=== PATIENT | male | born 1985 | race Caucasian/White ===

== ENCOUNTER 2018-09-24 03:28 | Inpatient (IN) ==
[2018-09-24] MEDS ORDERED: Haloperidol Inj 5 MG/ML Ampul IM ONE (03:47)
[2018-09-24 04:38] LABS: Baso # (Auto) 0.1 th/mm3 (0.0-0.2); Baso % (Auto) 0.5 % (0.0-2.0); Eos # (Auto) 0.1 th/mm3 (0.0-0.4); Eos % (Auto) 1.1 % (0.0-4.0); Hematocrit 50.3 % (39.0-51.0); Hemoglobin 17.1 gm/dL (13.0-17.0); Lymph # (Auto) 3.1 th/mm3 (1.0-4.8); Lymph % (Auto) 25.1 % (9.0-44.0); Mean Corpuscular HGB Conc 33.9 % (32.0-36.0); Mean Corpuscular Volume 94.5 fL (80.0-100.0); Mean Platelet Volume 8.8 fL (7.0-11.0); Mono # (Auto) 0.9 th/mm3 (0.0-0.9); Mono % (Auto) 7.6 % (0.0-8.0); Neut # (Auto) 8.2 th/mm3 (1.8-7.7); Neut % (Auto) 65.7 % (16.0-70.0); Platelet Count 266 th/mm3 (150-450); Red Blood Count 5.33 mil/mm3 (4.50-5.90); White Blood Count 12.5 th/mm3 (4.0-11.0)
[2018-09-24 04:49] LABS: Alanine Aminotransferase 61 U/L (12-78); Albumin 4.9 g/dL (3.4-5.0); Anion Gap 8 meq/L (5-15); Aspartate Aminotransferase 94 U/L (15-37); Blood Urea Nitrogen 8 mg/dL (7-18); Carbon Dioxide 28.6 meq/L (21.0-32.0); Chloride 101 meq/L (98-107); Glomerular Filtration Rate 64 mL/min (>89); Glucose,Random 119 mg/dL (74-106); Magnesium 2.3 mg/dL (1.5-2.5); Sodium 138 meq/L (136-145)
[2018-09-24 04:51] LABS: Alcohol 4 mg/dL (0-5)
[2018-09-24 05:00] LABS: Alkaline Phosphatase 62 U/L (45-117); Total Protein 8.5 g/dL (6.4-8.2)
--- NOTE | 2018-09-24 06:41 | ED ---
HPI General Chief Complaint: Psychiatric Symptoms Stated Complaint: Psych [place] [employer] Time Seen by Provider: 09/24/18 05:28 Source: patient and police Mode of arrival: other (police) Limitations: no limitations History of Present Illness HPI Narrative: Patient presents to our ED under a lundberg act by law enforcement due to acting psychotic. Patient has bipolar and has not been taking medications . Patient is difficult to obtain an HPI from due to being belligerent complaint: Reports altered mental status Duration: constant History of same: Yes Relieving factors: none Context: Reports recent drug abuse Associated psychiatric symptoms: Reports none Treatments prior to arrival: Reports placed on mental health hold Related Data Home Medications Medication Instructions Recorded Confirmed No Known Home Medications 09/24/18 09/24/18 Allergies Allergy/AdvReac Type Severity Reaction Status Date / Time No Known Allergies Allergy Verified 09/24/18 03:45 Review of Systems ROS: all other systems reviewed are negative [facility] Medical History Medical History Bipolar disorder (Acute) Surgical History Surgical History History of hip surgery (Acute) Social History Social History Substance History: No History of Abuse Second Hand Smoke Exposure: Yes Smoking Status: Current every day smoker Tobacco Type: Cigarettes How Often Do You Have a Drink Containing Alcohol: 2 to 4 times a month Recent Travel in [facility] within the Last 8 Weeks: No Recent Out of Country Travel within the Last 8 Weeks: No Immunization History Tetanus Immunization: >5 Years Exam Const General: cooperative Orientation: alert, awake and oriented x3 HENMT Head: normocephalic and atraumatic Nose: no nasal discharge and no epistaxis Mouth: moist mucous membranes Eyes Sclera: normal sclerae Pupils: PERRL Neck Neck: trachea midline and no JVD Resp Effort & Inspection: no use of accessory muscles Auscultation: clear to auscultation bilaterally Cardio Rate: regular rate Rhythm: regular rhythm Heart Sounds: no murmurs GI Inspection: non-distended Palpation: soft, no hepatosplenomegaly and nontender Skin General: dry skin (warm) Neuro General: alert and awake Cranial Nerves: other Speech: speech normal Motor: no movement abnormalities noted Extrem General: normal to inspection, no clubbing, no cyanosis and no edema Psych Mood: congruent mood Affect: normal affect Judgment: judgment good Course Initial Documented Vital Signs Temperature 97.7 F 09/24/18 03:46 Pulse Rate 118 H 09/24/18 03:46 Respiratory Rate 18 09/24/18 03:46 Blood Pressure 177/104 H 09/24/18 03:46 Pulse Oximetry 97 09/24/18 03:46 Last Documented Vital Signs Temperature 97.7 F 09/24/18 03:46 Pulse Rate 98 H 09/24/18 18:08 Respiratory Rate 18 09/24/18 18:08 Blood Pressure 136/74 09/24/18 18:08 Pulse Oximetry 98 09/24/18 18:08 Medical Decision Making MDM Narrative Medical decision making narrative: Patient presents to our ED under a lundberg act by law enforcement due to acting psychotic. Patient has bipolar and has not been taking medications . Patient is difficult to obtain an HPI from due to being belligerent Patient is given IM Haldol Benadryl and Ativan Lab work is ordered including a drug screen and alcohol level Lab work is unremarkable Patient is medically cleared and await psychiatric evaluation in the more Medical Screen Exam Complete: Yes Emergency Medical Condition: Yes Differential Diagnosis Differential Diagnosis: Anxiety, depression, suicidal ideation, niall, bipolar depression, drug-induced psychosis Lab Data Lab results reviewed: Yes I reviewed the patient's lab results. Result diagrams: 09/24/18 04:04 09/24/18 04:04 Lab Results 09/24/18 09/24/18 09/24/18 Range/Units 04:04 04:04 12:15 WBC 12.5 H (4.0-11.0) th/mm3 RBC 5.33 (4.50-5.90) mil/mm3 Hgb 17.1 H (13.0-17.0) gm/dL Hct 50.3 (39.0-51.0) % MCV 94.5 (80.0-100.0) fL MCH 32.0 (27.0-34.0) pg MCHC 33.9 (32.0-36.0) % RDW 13.0 (11.6-17.2) % Plt Count 266 (150-450) th/mm3 MPV 8.8 (7.0-11.0) fL Neut % (Auto) 65.7 (16.0-70.0) % Lymph % (Auto) 25.1 (9.0-44.0) % [place] % (Auto) 7.6 (0.0-8.0) % Eos % (Auto) 1.1 (0.0-4.0) % Baso % (Auto) 0.5 (0.0-2.0) % Neut # (Auto) 8.2 H (1.8-7.7) th/mm3 Lymph # (Auto) 3.1 (1.0-4.8) th/mm3 [place] # (Auto) 0.9 (0.0-0.9) th/mm3 Eos # (Auto) 0.1 (0.0-0.4) th/mm3 Baso # (Auto) 0.1 (0.0-0.2) th/mm3 WBC Differential . Differential Comment Auto diff final Sodium 138 (136-145) meq/L Potassium 4.0 (3.5-5.1) meq/L Chloride 101 (98-107) meq/L Carbon Dioxide 28.6 (21.0-32.0) meq/L Anion Gap 8 (5-15) meq/L BUN 8 (7-18) mg/dL Creatinine 1.29 (0.60-1.30) mg/dL Estimated GFR 64 L (>89) mL/min Random Glucose 119 H (74-106) mg/dL Calcium 9.0 (8.5-10.1) mg/dL Magnesium 2.3 (1.5-2.5) mg/dL Total Bilirubin 0.8 (0.2-1.0) mg/dL AST 94 H (15-37) U/L ALT 61 (12-78) U/L Alkaline Phosphatase 62 (45-117) U/L Total Protein 8.5 H (6.4-8.2) g/dL Albumin 4.9 (3.4-5.0) g/dL TSH 1.460 (0.358-3.740) uIU/mL Urine Opiates Screen Neg (Neg) Ur Barbiturates Screen Neg (Neg) Ur Amphetamines Screen Neg (Neg) U Benzodiazepines Scrn Neg (Neg) Urine Cocaine Screen Neg (Neg) U Cannabinoids Screen Neg (Neg) Serum Alcohol 4 (0-5) mg/dL Discharge Plan Discharge Disposition Patient Disposition: Sign Out(ED Internal Use Only) Discharge Condition Condition: Stable Discharge Order Discharge Orders: ED Use Only Admit Order (Routine); Ordered 09/24/18 Ordered By: Cathy Mckeon Discharge Details Diagnosis: Acute psychosis Physicians Team ED Provider: Carlos Mitchell ED Midlevel Provider: Jeanette Crespo Primary Care Provider: UNKNOWN, Attending Provider: Johnnie Villarreal Status ED Status: Left Department Discharge Information Discharge Date/Time: 09/24/18 17:14
[2018-09-24 12:46] LABS: Amphetamine Screen,Urine Neg (Neg); Barbiturate Screen,Urine Neg (Neg); Cannabinoid Screen,Urine Neg (Neg); Cocaine Screen,Urine Neg (Neg)
[2018-09-24 12:48] LABS: Opiate Screen,Urine Neg (Neg)
[2018-09-24] MEDS ORDERED: Aluminum/Magnesium/Simethacone Susp 30 ML UDC PO PRN (16:17)
--- NOTE | 2018-09-24 16:17 | ED ---
HPI - Psych - General Time Seen by Psych Provider: 16:00 Source: patient, old records reviewed, police Mode of arrival: other (police) Limitations: no limitations - History of Present Illness MD complaint: other Onset (ago): day(s) Duration: constant History of same: Yes Relieving factors: none Exacerbating factors: other Context: not taking psychiatric medications Associated symptoms: denies other symptoms, other Treatments prior to arrival: placed on mental health hold If self harm: other (Denies) - General Chief Complaint: Psychiatric Symptoms Stated Complaint: Psych [place] [employer] Time Seen by Provider: 09/24/18 05:28 - History of Present Illness HPI Narrative: History of Present Illness HPI Narrative: 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 Alleging that he made statements that there is going to be a terrorist attack. He also mentioned later that he will be carrying out God's plan with the terrorist attack. He also threatened to kill himself. Upon arrival here to the ED the patient was somewhat agitated and belligerent and hard ETO's. Once patient was moved to [facility] he continued to pace around the unit requiring frequent verbal redirection due to his intrusive behaviors but the other patients. EMR reviewed. Patient was admitted to our inpatient psychiatric unit in 2009 and treated for a manic episode. Current toxicology is negative for any substances of abuse. Patient is seen with jada Lerma present. The patient is difficult to maintain on topic. He states" I chose to come here to alleviate their distress. I have been told I have bipolar disorder and have had 3 manic episodes in a short amount of time. I have an undiscovered bipolar type disorder. May be is a type III or type 0." He has disorganized thoughts, he is tangential. Does not appear to be responding to internal stimuli. He does not answer questions when they are posed to him but rather goes on a tangent. I have contacted his mother, Lalito at telephone listed on the Bolden act. The mother reports that the patient has had 3 manic episodes. The first 1 in 2009, the second 1 in 2016 while he was in [place] and was hospitalized for over 2 weeks. After that hospitalization he has not taking any medication because he states that he does not like how the medication makes him feel. Beginning on Wednesday the patient has begun to demonstrate signs such as religiously preoccupied, becoming demanding and belligerent, verbalizing grandiose statements such as that the president of his college she is going to make him be in charge because she is retiring. He also has been calling different talk radio shows, has not been sleeping since last Wednesday. (Cathy Mckeon) - Related Data Home Medications Medication Instructions Recorded Confirmed No Known Home Medications 09/24/18 09/24/18 Allergies Allergy/AdvReac Type Severity Reaction Status Date / Time No Known Allergies Allergy Verified 09/24/18 03:45 [facility] - History History Provided By: Patient, Family Member (His mother) - Medical History Medical History: Medical History (Last Reviewed 09/24/18 @ 06:38 by Jeanette Crespo) Bipolar disorder - Surgical History Surgical History: Surgical History (Last Reviewed 09/24/18 @ 06:38 by Jeanette Crespo) History of hip surgery - Social History I have reviewed the patient's Social History: Yes - Tobacco History Second Hand Smoke Exposure: Yes Tobacco Use In Past 30 Days: Yes Smoking Status: Current every day smoker Tobacco Type: Cigarettes - Alcohol History How Often Do You Have a Drink Containing Alcohol: 4 or more times a week - Substance Use History Substance History: No History of Abuse - Travel History Recent Travel in the [facility] Within the Last 8 Weeks: No Recent Travel Out of the Country Within the Last 8 Weeks: No - Immunization History Tetanus Immunization: >5 Years Psychiatric History - Psychiatric History Psychiatric Treatment History: History of Psychiatric Treatment, History of Hospitalization in a Psychiatric Facility History of Inpatient Treatment: Yes - Psychiatric History 2 previous psychiatric hospitalizations in 2009 and in 2017. In 2009 he was treated here at [facility]. He does not take psychiatric medications. No previous suicide attempt. (Cathy Mckeon) Physical Exam - General Limitations: no limitations Mental Status Examination Consciousness: Alert Orientation: x4 Motor Activity: Normal gait Speech: Rapid Language: Adequate Fund of Knowledge: Adequate Attention and Concentration: Easily distracted Memory: Unremarkable Mood: Other (Labile) Affect: Appropriate Thought Process & Associations: Disorganized, Tangential Thought Content: Racing thoughts Hallucination Type: None Delusion Type: None Suicidal Ideation: No Suicidal Plan: No Suicidal Intention: No Homicidal Ideation: No Homicidal Plan: No Homicidal Intention: No Insight: Poor Judgment: Poor Initial Documented Vital Signs Temperature 97.7 F 09/24/18 03:46 Pulse Rate 118 H 09/24/18 03:46 Respiratory Rate 18 09/24/18 03:46 Blood Pressure 177/104 H 09/24/18 03:46 Pulse Oximetry 97 09/24/18 03:46 Last Documented Vital Signs Temperature 97.7 F 09/24/18 03:46 Pulse Rate 122 H 09/24/18 07:25 Respiratory Rate 18 09/24/18 07:25 Blood Pressure 137/79 09/24/18 07:25 Pulse Oximetry 99 09/24/18 07:25 MDM - Psych - Diagnosis (1) Bipolar disorder Code(s): F31.9 - Bipolar disorder, unspecified Status: Acute - Lab Data Result diagrams: 09/24/18 04:04 09/24/18 04:04 - MDM Narrative Medical decision making narrative: The time of this evaluation the patient meets criteria for inpatient psychiatric unit as he is exhibiting symptoms of niall. It is reported by his family that he has not slept since Wednesday, has been religiously preoccupied, has been demanding and belligerent, has been grandiose. Here in the ED he required ETO due to his agitated behavior. The patient will be admitted to inpatient psychiatric unit for further evaluation, for stabilization, for safety , and to initiate psychiatric medication. (Cathy Mckeon) - Lab Data Lab Results 09/24/18 09/24/18 09/24/18 Range/Units 04:04 04:04 12:15 WBC 12.5 H (4.0-11.0) th/mm3 RBC 5.33 (4.50-5.90) mil/mm3 Hgb 17.1 H (13.0-17.0) gm/dL Hct 50.3 (39.0-51.0) % MCV 94.5 (80.0-100.0) fL MCH 32.0 (27.0-34.0) pg MCHC 33.9 (32.0-36.0) % RDW 13.0 (11.6-17.2) % Plt Count 266 (150-450) th/mm3 MPV 8.8 (7.0-11.0) fL Neut % (Auto) 65.7 (16.0-70.0) % Lymph % (Auto) 25.1 (9.0-44.0) % [place] % (Auto) 7.6 (0.0-8.0) % Eos % (Auto) 1.1 (0.0-4.0) % Baso % (Auto) 0.5 (0.0-2.0) % Neut # (Auto) 8.2 H (1.8-7.7) th/mm3 Lymph # (Auto) 3.1 (1.0-4.8) th/mm3 [place] # (Auto) 0.9 (0.0-0.9) th/mm3 Eos # (Auto) 0.1 (0.0-0.4) th/mm3 Baso # (Auto) 0.1 (0.0-0.2) th/mm3 WBC Differential . Differential Comment Auto diff final Sodium 138 (136-145) meq/L Potassium 4.0 (3.5-5.1) meq/L Chloride 101 (98-107) meq/L Carbon Dioxide 28.6 (21.0-32.0) meq/L Anion Gap 8 (5-15) meq/L BUN 8 (7-18) mg/dL Creatinine 1.29 (0.60-1.30) mg/dL Estimated GFR 64 L (>89) mL/min Random Glucose 119 H (74-106) mg/dL Calcium 9.0 (8.5-10.1) mg/dL Magnesium 2.3 (1.5-2.5) mg/dL Total Bilirubin 0.8 (0.2-1.0) mg/dL AST 94 H (15-37) U/L ALT 61 (12-78) U/L Alkaline Phosphatase 62 (45-117) U/L Total Protein 8.5 H (6.4-8.2) g/dL Albumin 4.9 (3.4-5.0) g/dL TSH 1.460 (0.358-3.740) uIU/mL Urine Opiates Screen Neg (Neg) Ur Barbiturates Screen Neg (Neg) Ur Amphetamines Screen Neg (Neg) U Benzodiazepines Scrn Neg (Neg) Urine Cocaine Screen Neg (Neg) U Cannabinoids Screen Neg (Neg) Serum Alcohol 4 (0-5) mg/dL
[2018-09-24] MEDS: Senna/Docusate Sodium 8.6/50 MG Tablet PO SCH (20:25)
[2018-09-25] MEDS ORDERED: Haloperidol Inj 5 MG/ML Ampul IM SCH (00:08)
[2018-09-25] MEDS ORDERED: Haloperidol Inj 5 MG/ML Ampul ONE (00:10)
[2018-09-25 11:33] LABS: Calcium 9.1 mg/dL (8.5-10.1); Carbon Dioxide 28.8 meq/L (21.0-32.0); Potassium 4.6 meq/L (3.5-5.1)
[2018-09-25 11:36] LABS: Chol/HDL Ratio 5.82 Ratio; HDL Cholesterol 53.6 mg/dL (40.0-60.0)
[2018-09-25] MEDS: Senna/Docusate Sodium 8.6/50 MG Tablet PO SCH ×3 (12:39→20:14)
--- NOTE | 2018-09-25 13:26 | ECG ---
Date Performed: 09/25/2018 Time Performed: 10:49:50 PTAGE: 33 years EKG: SINUS BRADYCARDIA WITH SINUS ARRHYTHMIA BORDERLINE ECG NO PREVIOUS TRACING DOCTOR: Val Hawthorne Interpretating Date/Time 09/25/2018 13:25:20
[2018-09-25 13:41] LABS: Hemoglobin A1c 5.3 % (4.3-6.0)
--- NOTE | 2018-09-25 16:17 | P.HPPSY ---
Provisional Diagnosis Admission Date: September 24, 2018 16:25 [place] I.: Bipolar Disorder, MRE manic with psychotic features [place] II.: def [place] III.: Hyperlipidemia [place] IV.: marital stress Competence Certification of Person's Competence To Provide Express and Informed Consent I have personally examined Chun Estrada II, a person being served at [facility] on, September 25, 2018 1616. Express and informed consent means consent voluntarily given in writing, by a competent person, after sufficient explanation and disclosure of the subject matter involved to enable the person to make a knowing and willful decision without any element of force, fraud, deceit, duress, or other form of constraint or coercion. This person is 18 years of age or older, is not now known to be incompetent to consent to treatment with a guardian advocate, and does not have a health care surrogate or proxy currently making medical treatment decisions. I have found this person to be one of the following: [] Competent to provide express and informed consent, as defined above, for voluntary admission to this facility and is competent to provide express and informed consent for treatment. He/she has the consistent capacity to make well reasoned, willful, and knowing decisions concerning his or her medical or mental health treatment. The person fully and consistently understands the purpose of the admission for examination/placement and is fully capable of personally exercising all rights assured under [place] [] Incompetent to provide express and informed consent to voluntary admission, and this is incompetent to provide express and informed consent to treatment. The person must be transferred to involuntary status and a petition for a guardian advocate filed with the Circuit Court. [] Refusing to provide express and informed consent to voluntary admission but is competent to provide express and informed consent for treatment. The person must be discharged or transferred to involuntary status. Form shall be completed within 24 hours of a person's arrival at the receiving facility and filed in the clinical record of each person: 1. Admitted on a voluntary basis 2. Permitted to provide express and informed consent to his/her own treatment 3. Allowed to transfer from involuntary to voluntary status 4. Prior to permitting a person to consent to his or her own treatment after having been previously found incompetent to consent to treatment. History of Present Illness Capacity: Has capacity Chief Complaint: "I basically lundberg acted myself. My family kept telling me to go to the hospital" History of Present Illness: PT is a 33 YOWM with a hx of bipolar disorder who [place] [facility] [place] by [facility] alleging that pt was making statements that there would be a terror attack and he would be carrying out God's plan and made threats to harm himself. Pt was agitated upon arrival to ED and was given emergency medications for safety. Yesterday evening he became aggressive on the unit and required haldol 10mg IMX1 and ativan 2mg IMx1 to maintain safety. Staff report that pt has been grandiose and labile. He insisted that staff go to his home and retrieve his eyeglasses. When staff offered to call family to request that they bring in glasses he became belligerent insisting that his family could not possibly handle the task. He states that he has been diagnosed with bipolar disorder (during career) and has had 3 manic episodes lifetime. He states that he believes this was caused by an anti-malarial medications and b/c of this the department of defense refuses to take his phone calls. "Maki called them numerous times and they won't answer the phone." He states that he has given himself over to [employer] and the terrorist attack will happen but he is not going to participate. He states that he was prescribed olanzapine but he stopped taking it over a year ago. He states that his has been begging him to go to the hospital for several weeks, but he attributes this to her having " a breakdown". He states that he recently carried on a "hot, heavy" affair for two weeks and his is just mad. "Everything is bipolar with her! She is the one flipping out!" He states that he was diagnosed with hyperlipidemia by his doctor cholesterol was 415 but he is refusing to take medications because he wants to use diet and exercise. When told that yesterday's measure was 347 pt preens and states," See I know I'm doing. That is a clear improvement!" He has not been sleeping for almost a week. "I don't need it". He states that he is agreeable to take medications but demands release because he does not think he belongs in the hospital. He admits that he is manic and could probably "use some help" He reports that he has read up on lithium and depakote and other mood stabilizers and is not agreeable to take them b/c of kidney and liver risks. He states that he will not take olanzapine again because of metabolic risks. When discussed with pt that lithium might be a better choice due to lack of metabolic risks, pt states that he understands, but is not agreeable to take it. He states that he is agreeable to take an antipsychotic because "they usually work for me." Discussed trial of abilify b/c of lower metabolic risks. Discussed extensively with pt risks of increasing his cholesterol and need for monitoring and treatment. Pt states that he is fine with treating cholesterol if it means that he can take the medication he wants. Given the severity of pt's symptoms including significant aggression, benefits outweigh risks. SH: served in [employer], disabled , lives in own home, with a six year old daughter. Parents live nearby. no pending legal charges. - Inpatient Certification I certify that the inpatient services were ordered in accordance with Medicare regulations governing the order. This includes certification that hospital inpatient services are reasonable and necessary and in the case of services not specified as inpatient-only under 42 CFR 419.22(n), that they are appropriately provided as inpatient services in accordance to with the 2-midnight benchmark under 43 CFR 412.3(e) I certify that inpatient psychiatric hospital services are medically necessary. Evaluation and treatment and/or diagnostic testing are expected to improve the patient's condition. The patient needs on a daily basis, active treatment furnished directly by or requiring the supervision of inpatient psychiatric facility personnel. Estimated Total Length of Stay (Days): 8 Plans for Post Hospital Care: Home Review of Systems Psychiatric: Reports abnormal sleep pattern, Reports behavioral changes, Reports irritability, Reports mood swings, Reports paranoia PMFSH - History History Provided By: Patient, Medical Record (including collateral information provided by mother in chart) - Medical History Medical History: Medical History (Last Updated 09/25/18 @ 16:42 by Joceline Nelson MD) High cholesterol Bipolar disorder - Surgical History Surgical History: Surgical History (Last Reviewed 09/25/18 @ 16:42 by Joceline Nelson MD) History of hip surgery - Family History Family History: Family History (Last Updated 09/25/18 @ 16:42 by Joceline Nelson MD) Other No pertinent family history - Social History I have reviewed the patient's Social History: Yes - Tobacco History Second Hand Smoke Exposure: Yes Tobacco Use In Past 30 Days: Yes Smoking Status: Current every day smoker Tobacco Type: Cigarettes - Alcohol History How Often Do You Have a Drink Containing Alcohol: 2 to 4 times a month - Substance Use History Substance History: No History of Abuse - Travel History Recent Travel in the [place] Within the Last 8 Weeks: No Recent Travel Out of the Country Within the Last 8 Weeks: No - Immunization History Tetanus Immunization: >5 Years Hx Influenza Vaccine This Season: Yes Medications and Allergies Active Medications: Active Medications Al Hydrox/Mg Hydrox/Simethicone (Mag-Al Plus Susp Liq) 30 ml PO Q6H PRN PRN Reason: DYSPEPSIA Al Hydroxide/Mg Hydroxide (Milk Of Magnesia Liq) 30 ml PO Q12H PRN PRN Reason: Mild Constipation Diphenhydramine HCl (Benadryl) 50 mg PO HS PRN PRN Reason: INSOMNIA Lorazepam (Ativan Inj) 1 mg IM Q6H PRN PRN Reason: MODERATE TO SEVERE ANXIETY Olanzapine (Zyprexa Inj) 10 mg IM Q12H PRN PRN Reason: SEVERE AGITATION Senna/Docusate Sodium (Radha-Colace) 1 tab PO BID GEM Last Admin: 09/25/18 12:40 Dose: 1 tab Sennosides (Senokot) 17.2 mg PO Q12H PRN PRN Reason: Moderate Constipation Allergies Allergy/AdvReac Type Severity Reaction Status Date / Time No Known Allergies Allergy Verified 09/24/18 03:45 Home Medications Medication Instructions Recorded Confirmed Type No Known Home Medications 09/24/18 09/24/18 History Results - Labs CBC & Chem 7: 09/24/18 04:04 09/25/18 10:49 Labs: Laboratory Results - last 24 hr 09/25/18 09/25/18 10:49 10:49 Sodium 137 Potassium 4.6 Chloride 103 Carbon Dioxide 28.8 Anion Gap 5 BUN 14 Creatinine 1.17 Estimated GFR 72 L Random Glucose 98 Hemoglobin A1c 5.3 Calcium 9.1 Triglycerides 124 Cholesterol 312 H LDL Cholesterol, Calc 234 H HDL Cholesterol 53.6 Cholesterol/HDL Ratio 5.82 Exam Vital signs: Vital Signs 09/24/18 16:53 09/24/18 18:08 09/25/18 06:00 Temperature 98.0 F Pulse Rate 100 H 98 H 103 H Respiratory Rate 18 19 Blood Pressure 136/74 Pulse Oximetry 98 95 09/25/18 16:06 Temperature 98.0 F Pulse Rate 55 L Respiratory Rate 18 Blood Pressure 126/68 Pulse Oximetry 99 Intake & Output 09/24/18 09/25/18 09/25/18 18:59 06:59 18:59 Weight 109.2 kg Other: Weight On Admission 109.2 kg Mental Status Examination Consciousness: Alert Orientation: x4 Motor Activity: Normal gait Speech: Rapid Language: Adequate Fund of Knowledge: Adequate Attention and Concentration: Easily distracted Memory: Unremarkable Mood: Other (Labile) Affect: Appropriate Thought Process & Associations: Disorganized, Tangential Thought Content: Racing thoughts Hallucination Type: None Delusion Type: None Suicidal Ideation: No Suicidal Plan: No Suicidal Intention: No Homicidal Ideation: No Homicidal Plan: No Homicidal Intention: No Insight: Poor Judgment: Poor Assessment and Plan - Assessment (1) Bipolar disorder Code(s): F31.9 - Bipolar disorder, unspecified Status: Acute - Plan Plan: Estimated LOS: [] days Start Abilify trial as pt is agreeable to take it (rejected other options that had more favorable metabolic profile) and symptoms are severe. Titrate to effective dose. Pt has capacity but has refused voluntary admission. First opinion completed. Will request 2nd opinion. Justification for Continued Inpatient Stay: impairments in safety (1) Bipolar disorder Qualifiers: Active/Remission status: currently active Current bipolar episode type: manic Current episode severity: severe Psychotic features: with psychotic features Qualified Code(s): F31.2 - Bipolar disorder, current episode manic severe with psychotic features
[2018-09-25] MEDS: ARIPiprazole 10 MG Tablet PO SCH (20:14)
[2018-09-26] MEDS ORDERED: traZODone 100 MG Tablet PO SCH ×2 (00:15→21:00)
[2018-09-26] MEDS ORDERED: traZODone 100 MG Tablet PO ONE (00:30)
[2018-09-26] MEDS: Senna/Docusate Sodium 8.6/50 MG Tablet PO SCH ×2 (08:34→21:35)
[2018-09-26] MEDS ORDERED: Temazepam 15 MG Capsule PO PRN (10:08)
[2018-09-26] MEDS ORDERED: Acetaminophen 325 MG Tablet PO PRN (10:11)
--- NOTE | 2018-09-26 12:24 | P.PNPSY ---
Subjective Chief Complaint: "I basically lundberg acted myself. My family kept telling me to go to the hospital" Remarks: Patient seen for follow-up, chart reviewed, patient discussed with nursing staff ; we reviewed the patient's mood, thoughts, and behaviors from overnight and this morning. Nursing reports that patient did not sleep well overnight but has been cooperative quiet this morning. Is also described as needing makes frequent request from nursing staff. Patient also expresses some grandiose beliefs about his intelligence and abilities. Patient was seen sitting quietly in the recreational room and was appropriate when approached by disorganized patients. Patient was cooperative with interview and acknowledges a history of bipolar disorder with psychosis and he would like to continue treatment with a mood stabilizer. Reports initial good response to the current medications but he is willing to stay for a few more days to ensure stability before he returns back home and to school. He expressed a good insight as to the risks benefits side effects alternative treatments to stabilize his mood is satisfied with the choice of Abilify. Mental Status Examination Appearance: Appropriate Consciousness: Alert Orientation: x4 Motor Activity: Normal gait Speech: Unremarkable Language: Adequate Fund of Knowledge: Adequate Attention and Concentration: Easily distracted Memory: Unremarkable Mood: Other (Labile) Affect: Appropriate Thought Process & Associations: Intact, Logical, Goal directed Thought Content: Racing thoughts Hallucination Type: None Delusion Type: None Suicidal Ideation: No Suicidal Plan: No Suicidal Intention: No Homicidal Ideation: No Homicidal Plan: No Homicidal Intention: No Insight: Poor Judgment: Poor Assessment and Plan - Assessment (1) Bipolar disorder Code(s): F31.9 - Bipolar disorder, unspecified Status: Acute - Plan Plan: September 25, 2018: Initial treatment plan Start Abilify trial as pt is agreeable to take it (rejected other options that had more favorable metabolic profile) and symptoms are severe. Titrate to effective dose. Pt has capacity but has refused voluntary admission. First opinion completed. Will request 2nd opinion. September 26, 2018: Fair response to initial treatment as the patient's thoughts are more organized and he is expressing adequate insight into the need for treatment. Patient expressed good understanding of risk benefits and side effects of treatment and he therefore is appropriate to sign himself involuntary. Continue Abilify 10 mg a day for bipolar disorder. Start temazepam 50 mg at bedtime as needed for insomnia. Start trazodone 100 mg scheduled at bedtime. Discharge planning: The patient will follow up with [facility] provider for psychiatry, anticipate discharge on Wednesday. Converted to voluntary status today. Justification for Continued Inpatient Stay: Patient remains an elevated risk for self-harm by acting out on reckless impulses due to manic mood and will require further inpatient stabilization and preparation of a safe discharge plan. Moving patient to a less restrictive environment at this time may result in decompensation. (1) Bipolar disorder Qualifiers: Active/Remission status: currently active Current bipolar episode type: manic Current episode severity: severe Psychotic features: with psychotic features Qualified Code(s): F31.2 - Bipolar disorder, current episode manic severe with psychotic features
[2018-09-26] MEDS: ARIPiprazole 10 MG Tablet PO SCH (21:37)
[2018-09-27] MEDS: Senna/Docusate Sodium 8.6/50 MG Tablet PO SCH ×2 (08:29→22:57)
--- NOTE | 2018-09-27 10:28 | P.TTN ---
- Patient Problems Problems: 1. Discharge planning 2. Medication compliance 3. Knowledge deficit 4. Lack of coping skills - Progress Toward Goals Provider Present: Other (Dr. Bui, patient remains for further stabilization, discharge date tomorrow September 28, 2018.) Psychiatric Counselors Present: Tereso Cardoza Jr., [facility] (Patient reports he will return to his residence upon discharge.) Group Spec/RT/OT/MAST Present: LEONOR Yang (Patient attends light groups and is redirectable.) - Documentation Teaching Recipient: Patient
[2018-09-27] MEDS ORDERED: traZODone 100 MG Tablet PO PRN (12:47)
--- NOTE | 2018-09-27 12:49 | P.PNPSY ---
Subjective Chief Complaint: "I basically lundberg acted myself. My family kept telling me to go to the hospital" Remarks: Patient seen for follow-up, chart reviewed, patient discussed with nursing staff ; we reviewed the patient's mood, thoughts, and behaviors from overnight and this morning. Nurse reports the patient slept 7 hours overnight and is described as calm and cooperative with no signs of delusions. Patient was observed to be interacting appropriately during recreational therapy. He continues to deny suicidal or homicidal ideations and he denies any auditory hallucinations. He did not not admit to any hyper cheondoism or paranoid delusions. He reports good tolerability of his medications and he feels confident with his ability to remain stable as an outpatient. Mental Status Examination Appearance: Appropriate Consciousness: Alert Orientation: x4 Motor Activity: Normal gait Speech: Unremarkable Language: Adequate Fund of Knowledge: Adequate Attention and Concentration: Easily distracted Memory: Unremarkable Mood: Other (Labile) Affect: Appropriate Thought Process & Associations: Intact, Logical, Goal directed Thought Content: Appropriate Hallucination Type: None Delusion Type: None Suicidal Ideation: No Suicidal Plan: No Suicidal Intention: No Homicidal Ideation: No Homicidal Plan: No Homicidal Intention: No Insight: Poor Judgment: Poor Assessment and Plan - Assessment (1) Bipolar disorder Code(s): F31.9 - Bipolar disorder, unspecified Status: Acute - Plan Plan: September 25, 2018: Initial treatment plan Start Abilify trial as pt is agreeable to take it (rejected other options that had more favorable metabolic profile) and symptoms are severe. Titrate to effective dose. Pt has capacity but has refused voluntary admission. First opinion completed. Will request 2nd opinion. September 26, 2018: Fair response to initial treatment as the patient's thoughts are more organized and he is expressing adequate insight into the need for treatment. Patient expressed good understanding of risk benefits and side effects of treatment and he therefore is appropriate to sign himself involuntary. Continue Abilify 10 mg a day for bipolar disorder. Start temazepam 50 mg at bedtime as needed for insomnia. Start trazodone 100 mg scheduled at bedtime. Discharge planning: The patient will follow up with [facility] provider for psychiatry, anticipate discharge on Wednesday. Converted to voluntary status today. September 27, 2018: Good response to treatment, the patient's mood and behavior continue to stabilize any as tolerated the start of medications. Continue inpatient psychiatric treatment and stabilization, voluntary status. Continue current medications unchanged. Anticipate discharge tomorrow with [facility]. Justification for Continued Inpatient Stay: Patient remains an elevated risk for self-harm by acting out suicidal ideations or delusions and will require further inpatient stabilization and preparation of a safe discharge plan. Moving patient to a less restrictive environment at this time may result in decompensation. (1) Bipolar disorder Qualifiers: Active/Remission status: currently active Current bipolar episode type: manic Current episode severity: severe Psychotic features: with psychotic features Qualified Code(s): F31.2 - Bipolar disorder, current episode manic severe with psychotic features
[2018-09-27] MEDS: ARIPiprazole 10 MG Tablet PO SCH (21:23)
[2018-09-27 23:02] VITALS: TEMP 97.8
[2018-09-28 05:30] VITALS: BP 110/53; PULSE 58; RESP 16; O2SAT 98
[2018-09-28] MEDS: Senna/Docusate Sodium 8.6/50 MG Tablet PO SCH (08:26)
--- NOTE | 2018-09-28 12:07 | P.DSPSY ---
Psychiatry Discharge Summary Inpatient Psychiatric care?: Yes Advance Directives: No Mental Health Advance Directive: No Health Care Proxy: No - Admission Admission Date: September 24, 2018 16:25 - Admission Diagnosis (1) Acute psychosis Code(s): F23 - Brief psychotic disorder (2) Bipolar disorder Code(s): F31.9 - Bipolar disorder, unspecified Brief History: PT is a 33 YOWM with a hx of bipolar disorder who was admitted to [facility] [place] a BA by [facility] alleging that pt was making statements that there would be a terror attack and he would be carrying out God's plan and made threats to harm himself. Pt was agitated upon arrival to ED and was given emergency medications for safety. Yesterday evening he became aggressive on the unit and required haldol 10mg IMX1 and ativan 2mg IMx1 to maintain safety. Staff report that pt has been grandiose and labile. He insisted that staff go to his home and retrieve his eyeglasses. When staff offered to call family to request that they bring in glasses he became belligerent insisting that his family could not possibly handle the task. He states that he has been diagnosed with bipolar disorder (during career) and has had 3 manic episodes lifetime. He states that he believes this was caused by an anti-malarial medications and b/c of this the department of defense refuses to take his phone calls. "Maki called them numerous times and they won't answer the phone." He states that he has given himself over to [employer] and the terrorist attack will happen but he is not going to participate. He states that he was prescribed olanzapine but he stopped taking it over a year ago. He states that his has been begging him to go to the hospital for several weeks, but he attributes this to her having " a breakdown". He states that he recently carried on a "hot, heavy" affair for two weeks and his is just mad. "Everything is bipolar with her! She is the one flipping out!" He states that he was diagnosed with hyperlipidemia by his doctor cholesterol was 415 but he is refusing to take medications because he wants to use diet and exercise. When told that yesterday's measure was 347 pt preens and states," See I know I'm doing. That is a clear improvement!" He has not been sleeping for almost a week. "I don't need it". He states that he is agreeable to take medications but demands release because he does not think he belongs in the hospital. He admits that he is manic and could probably "use some help" He reports that he has read up on lithium and depakote and other mood stabilizers and is not agreeable to take them b/c of kidney and liver risks. He states that he will not take olanzapine again because of metabolic risks. When discussed with pt that lithium might be a better choice due to lack of metabolic risks, pt states that he understands, but is not agreeable to take it. He states that he is agreeable to take an antipsychotic because "they usually work for me." Discussed trial of abilify b/c of lower metabolic risks. Discussed extensively with pt risks of increasing his cholesterol and need for monitoring and treatment. Pt states that he is fine with treating cholesterol if it means that he can take the medication he wants. Given the severity of pt's symptoms including significant aggression, benefits outweigh risks. SH: served in [email or web address], disabled , lives in own home, with a six year old daughter. Parents live nearby. no pending legal charges. Tobacco Use In Past 30 Days: Yes How Often Do You Have a Drink Containing Alcohol: 2 to 4 times a month Hospital Course: September 25, 2018: Initial treatment plan Start Abilify trial as pt is agreeable to take it (rejected other options that had more favorable metabolic profile) and symptoms are severe. Titrate to effective dose. Pt has capacity but has refused voluntary admission. First opinion completed. Will request 2nd opinion. September 26, 2018: Fair response to initial treatment as the patient's thoughts are more organized and he is expressing adequate insight into the need for treatment. Patient expressed good understanding of risk benefits and side effects of treatment and he therefore is appropriate to sign himself involuntary. Continue Abilify 10 mg a day for bipolar disorder. Start temazepam 50 mg at bedtime as needed for insomnia. Start trazodone 100 mg scheduled at bedtime. Discharge planning: The patient will follow up with [facility] [place] provider for psychiatry, anticipate discharge on Wednesday. Converted to voluntary status today. September 27, 2018: Good response to treatment, the patient's mood and behavior continue to stabilize any as tolerated the start of medications. Continue inpatient psychiatric treatment and stabilization, voluntary status. Continue current medications unchanged. Anticipate discharge tomorrow with [facility]. September 28, 2018: Patient was seen and examined on the unit by psychiatry and also visited by counselor. Psychotropic medications remained well tolerated. There was a good response to inpatient treatment plan noted by nursing and provider observations, and the patient reported improvements in mood, anxiety, and there was no evidence of any hallucinations, delusions, suicidality or homicidality at time of discharge. Psychiatric follow-up as arranged by counselor. Patient is also to follow up with primary care. I have counseled the patient to abstain from substances of abuse including cannabis and have counseled patient to return to the psychiatric emergency room for any concerning symptoms as part of a general safety plan. Weighing the acute, chronic, and protective factors and based on the available evidence, I loss control consultant that the patient does not presently meet criteria for involuntary psychiatric hospitalization. Suicide risk assessment on day of discharge suggest lower than imminent risk from mental illness. Patient is denying suicidal ideation. There is no evidence of impairment in reality construction. We will bolster protective factors by relinking the patient with outpatient psychiatric services. There is no evidence of self-care deficit at time of discharge. There is no evidence to support an involuntary hospitalization therefore discharge order placed per patient's request. Patient has maximized benefit from this inpatient psychiatric hospital stay. Discharge medications include prescriptions for Abilify 10 mg/day #30 refill 0, trazodone 100 mg take 1 tab by mouth at bedtime as needed for insomnia #30 refill 0. - Discharge Discharge Date: 09/28/18 - Discharge Diagnosis (1) Bipolar disorder Code(s): F31.9 - Bipolar disorder, unspecified Status: Acute Discharge Disposition: Home - Discharge Time > 30 minutes Mental Status Examination Appearance: Appropriate Consciousness: Alert Orientation: x4 Motor Activity: Normal gait Speech: Unremarkable Language: Adequate Fund of Knowledge: Adequate Attention and Concentration: Easily distracted Memory: Unremarkable Mood: Other (Labile) Affect: Appropriate Thought Process & Associations: Intact, Logical, Goal directed Thought Content: Appropriate Hallucination Type: None Delusion Type: None Suicidal Ideation: No Suicidal Plan: No Suicidal Intention: No Homicidal Ideation: No Homicidal Plan: No Homicidal Intention: No Insight: Fair Judgment: Impulsive Discharge/Advance Care Plan - Results Vital Signs: Last Vital Signs Temp 97.8 F 09/28/18 05:29 Pulse 58 L 09/28/18 05:29 Resp 16 09/28/18 05:29 BP 110/53 L 09/28/18 05:29 Pulse Ox 98 09/28/18 05:29 Lab Results: Laboratory Results Hemoglobin A1c 5.3 % (4.3-6.0) 09/25/18 10:49 Triglycerides 124 mg/dL (42-150) 09/25/18 10:49 Cholesterol 312 mg/dL (120-200) H 09/25/18 10:49 LDL Cholesterol, Calc 234 mg/dL (0-99) H 09/25/18 10:49 HDL Cholesterol 53.6 mg/dL (40.0-60.0) 09/25/18 10:49 TSH 1.460 uIU/mL (0.358-3.740) 09/24/18 04:04 Summary of Procedures: None ordered Pending Results: None - Medications Number of antipsychotic medications at discharge: 1 - Discharge Care Plan Goals to Promote Your Health: * To prevent worsening of your condition and complications * To maintain your health at the optimal level Directions to Meet Your Goals: Take your medications as prescribed Follow your dietary instruction Follow activity as directed Keep your appointments as scheduled Take your immunizations and boosters as scheduled If your symptoms worsen call your PCP, if no PCP go to Urgent Care Center or Emergency Room For 22/02 questions related to your inpatient stay or results of tests pending at discharge, please contact Dr. Gene Conrad MD at Smoking is Dangerous to Your Health. Avoid second hand smoking (2) Bipolar disorder Qualifiers: Active/Remission status: currently active Current bipolar episode type: manic Current episode severity: severe Psychotic features: with psychotic features Qualified Code(s): F31.2 - Bipolar disorder, current episode manic severe with psychotic features (1) Bipolar disorder Qualifiers: Active/Remission status: currently active Current bipolar episode type: manic Current episode severity: severe Psychotic features: with psychotic features Qualified Code(s): F31.2 - Bipolar disorder, current episode manic severe with psychotic features
== END 2018-09-28 09:45 | disposition home or self-care (01) | DRG 885 ==
LOC: NEPB 03:28 → NEDA 16:25 → H270 17:12 → H260 09-27 10:47
PROVIDERS: ADMIT Psychiatry & Neurology Psychiatry; ATTEND Psychiatry & Neurology Psychiatry
CPT/HCPCS: 80048; 80053; 80061; 80307; 83036; 83735; 84443; 85025; 90772; 90782; 90791; 93005; 96372; 99285; J1200; J1630; J2060